=== PATIENT | male | born 1990 | race Caucasian/White ===

== ENCOUNTER 2024-02-24 22:55 | Observation (INO) ==
[2024-02-24 23:11] VITALS: BMI 53.6
--- NOTE | 2024-02-24 23:51 | DR.N/VMALE ---
HPI Time Seen Time Seen by Provider: 02/24/24 23:50 Primary Care Physician Primary Care Physician: Sarita Jarquin Complaints Chief Complaint Doctors Comments: Patient presents with RUQ abdl pain.Patient states that the pain began last night and he has had n,v,d.Patient was able to eat ( small amt) until 17:00 today.He states that after that time he has vomited everything or has had diarrhea. Patient states that the pain is a sharp pain, he has never hurt like this before and he feels weak. He states that 1 yr ago at [facility] he had a hida scan.The scan indicated that he had 0% functioning of his gallbladder. Patient has been taking monjaro for approx. 7 months. His current dose is 12.5mg ( he has been on this dose for 5 months). Patient denies: fever,hematemesis,hematochezia,dizziness. Chief Complaint:: Pt ambulatory into ER c/o nausea, vomiting, and diarrhea x1 day. Pt states he feels weak and has not had much intake today. Pt was seen 1 year ago and was told he had 0% gallbladder function but elected to not have it removed. Pt also states he takes Monjaro weekly. Self Treatment fo Chief Complaint: pt took anti-diarrheal medication and zofran at 4pm COVID-19 Coronavirus risk:travel/contact w/high risk person: No Has patient experienced Coronavirus symptoms: No Source History Provided: Patient Mode of Arrival Mode of Arrival: Ambulatory Timing Onset of Chief Complaint: 02/23/24 PMH PMH Past Medical History: No Past Surgical History: Yes Surgical History: Tonsillectomy Family History History of Family Medical Conditions: Yes Family Medical History: Diabetes Mellitus, Coronary Artery Disease and Hypertension Social History Does patient currently use any type of tobacco product: No Have you used tobacco products in the last 12 months: No Does any household member use tobacco: No Alcohol Use: None Do you use any recreational Drugs:: No Lives With: Spouse Lives Where: Home Travel Risk Coronavirus risk:travel/contact w/high risk person: No Has patient experienced Coronavirus symptoms: No Infectious screening In the last 2 months have you had wt loss of >10#?: NO Have you had fever, night sweats or hemotysis?: No Have you traveled outside the country in the last 6 months?: No Isolation: Standard ROS Review of Systems Constitutional: No Symptoms Reported Eyes: No Symptoms Reported ENTM: No Symptoms Reported Respiratoy: No Symptoms Reported Cardiovascular: No Symptoms Reported Gastrointestinal/Abdominal: Abdominal Pain (RUQ), Diarrhea, Nausea and Vomiting Genitourinary: No Symptoms Reported Neurological: Weakness Musculoskeletal: No Symptoms Reported Integumentary: No Symptoms Reported Hematologic/Lymphatic: No Symptoms Reported Endocrine: No Symptoms Reported Psychiatric: No Symptoms Reported All Other Systems: Reviewed and Negative PE Vital Signs Vitals: Vital Signs Temperature 98.1 F Pulse Rate [Brachial] 73 Pulse Rate 82 Respiratory Rate 18 Respiratory Rate 14 Respiratory Rate 16 Blood Pressure [Right Arm] 135/71 Blood Pressure 134/80 O2 Sat by Pulse Oximetry 100 O2 Sat by Pulse Oximetry 96 General Limitations: No Limitations General Appearance: Alert and In No Apparent Distress Head Head Exam: Normal Inspection Eyes Eye exam: Normal Appearance ENT ENT Exam: Normal Exam Neck Neck Exam: Normal Inspection Chest Chest Inspection: Normal Inspection Respiratory Respiratory Exam: Normal Lung Sounds Bilat Respiratory Exam: Bilateral: Clear to Auscultation Cardiovascular Cardiovascular Exam: Regular Rate and Normal Rhythm Abdominal Exam Abdominal Exam: Soft, Tenderness (RUQ) and Hypoactive Bowel Sounds Abdominal Tenderness: RUQ Rectal Rectal Exam: Deferred Exam: Male: Deferred Extremities Extremities Exam: Normal Inspection Back Back Exam: Normal Inspection Neurologic Neurological Exam: Alert and Oriented X3 Psychiatric Psychiatric Exam: Normal Affect and Normal Mood Skin Skin Exam: Warm, Dry, Intact and Normal Color MDM Differential Diagnosis Differential Diagnosis: Considerations may Include:: Appendicitis, Bowel Obstruction, Cholecystitis, Inflammatory BD, Pancreatitis and Urinary Tract Infection Differential Diagnosis Comment: Bowel iachemia,Bowel perforation COURSE Treatment Treatment: Patient was brought to an exam room and IV access was initiated. Patient was given 1 L normal saline bolus IV and Reglan 10 mg IV. Patient was offered medication for pain but would not like any at this time. Patient's labs and tests were reviewed:The abdpelvis Ct w/ contrast did not reveal an acute process,wbc 10.6,CMP stable,u/a neg,LFts stable,CRP11.5,lactic acid 0.7.Patient received dialudid 1mg iv for pain 02:[address] Solano.Dr Solano will admit Patient to his service for further evaluation.Patient has been stable in the [facility] Labs Reviewed Laboratory Results Reviewed?: Yes 02/24/24 23:56 02/24/24 23:56 Laboratory: WBC 10.6 X10^3/uL (3.6-10.0) H 02/24/24 23:56 RBC 5.11 X10^6/uL (4.7-6.0) 02/24/24 23:56 Hgb 13.9 g/dL (13.5-18.0) 02/24/24 23:56 Hct 42.5 % (42.0-54.0) 02/24/24 23:56 MCV 83.2 fL (80.0-100.0) 02/24/24 23:56 MCH 27.3 pg (27.0-34.0) 02/24/24 23:56 MCHC 32.8 g/dL (33.0-35.0) L 02/24/24 23:56 RDW 14.5 % (11.6-16.5) 02/24/24 23:56 Plt Count 237 X10^3/uL (150.0-450.0) 02/24/24 23:56 MPV 9.8 fL (7.4-11.0) 02/24/24 23:56 Neut % (Auto) 69.2 % (42.0-75.0) 02/24/24 23:56 Lymph % (Auto) 22.2 % (21.0-51.0) 02/24/24 23:56 [place] % (Auto) 6.1 % (0.0-13.0) 02/24/24 23:56 Eos % (Auto) 1.8 % (0.9-2.9) 02/24/24 23:56 Baso % (Auto) 0.7 % (0.2-1.0) 02/24/24 23:56 Neut # (Auto) 7.3 x10^3/uL (2.2-4.8) H 02/24/24 23:56 Lymph # (Auto) 2.3 X10^3/uL (1.3-2.9) 02/24/24 23:56 [place] # (Auto) 0.6 x10^3/uL (0.3-0.8) 02/24/24 23:56 Eos # (Auto) 0.2 x10^3/uL (0.0-0.2) 02/24/24 23:56 Baso # (Auto) 0.1 X10^3/uL (0.0-0.1) 02/24/24 23:56 Absolute Nucleated RBC 0.1 /100WBC 02/24/24 23:56 Sodium 141 mmol/L (136-145) 02/24/24 23:56 Corrected Sodium TNP 02/24/24 23:56 Potassium 3.4 mmol/L (3.5-5.1) L 02/24/24 23:56 Chloride 105 mmol/L (98-107) 02/24/24 23:56 Carbon Dioxide 27.1 mmol/L (21-32) 02/24/24 23:56 BUN 12 mg/dL (7-18) 02/24/24 23:56 Creatinine 0.83 mg/dL (0.70-1.30) 02/24/24 23:56 Est GFR (MDRD) Af Amer > 60 (>60) 02/24/24 23:56 Est GFR (MDRD) Non-Af > 60 (>60) 02/24/24 23:56 Glucose 87 mg/dL (65-99) 02/24/24 23:56 Lactic Acid 0.7 mmol/L (0.4-2.0) 02/25/24 00:30 Calcium 8.1 mg/dL (8.5-10.1) L 02/24/24 23:56 Corrected Calcium 8.7 mg/dL (8.5-10.1) 02/24/24 23:56 Total Bilirubin 0.50 mg/dL (0.2-1.0) 02/24/24 23:56 AST 13 Units/L (15-37) L 02/24/24 23:56 ALT 21 Units/L (12-78) 02/24/24 23:56 Alkaline Phosphatase 73 Units/L (46-116) 02/24/24 23:56 C-Reactive Protein 11.50 mg/L (0-3.0) H 02/25/24 23:56 Total Protein 7.0 g/dL (6.4-8.2) 02/24/24 23:56 Albumin 3.2 g/dL (3.4-5.0) L 02/24/24 23:56 Globulin 3.8 g/dL (2.5-4.5) 02/24/24 23:56 Albumin/Globulin Ratio 0.8 Ratio (1.1-2.1) L 02/24/24 23:56 Amylase 40 Units/L (25-115) 02/24/24 23:56 Lipase 26 Units/L (16-77) 02/24/24 23:56 Specimen Type Clean catch urine 02/25/24 01:00 Urine Color Yellow (YELLOW) 02/25/24 01:00 Urine Appearance Clear (CLEAR) 02/25/24 01:00 Urine pH 5.0 (5.0 - 8.0) 02/25/24 01:00 Ur Specific [place] 1.020 (1.000-1.030) 02/25/24 01:00 Urine Protein 1+ (NEGATIVE) 02/25/24 01:00 Urine Glucose (UA) Negative (NEGATIVE) 02/25/24 01:00 Urine Ketones Negative (NEGATIVE) 02/25/24 01:00 Urine Blood Negative (NEGATIVE) 02/25/24 01:00 Urine Nitrite Negative (NEGATIVE) 02/25/24 01:00 Urine Bilirubin Negative (NEGATIVE) 02/25/24 01:00 Urine Urobilinogen Normal (NORMAL) 02/25/24 01:00 Ur Leukocyte Esterase 1+ (NEGATIVE) 02/25/24 01:00 Urine RBC None seen /HPF (0-3) 02/25/24 01:00 Urine WBC 0-2 /HPF (0-5) 02/25/24 01:00 Ur Squamous Epith Cells Rare /HPF (NEGATIVE) 02/25/24 01:00 Urine Bacteria Negative /HPF (NEGATIVE) 02/25/24 01:00 Urine Mucus Few /HPF (NEGATIVE) 02/25/24 01:00 Ur Culture Indicated? No/not indicated 02/25/24 01:00 Opioid Opioid Risk Tool Age ([place] box if 16-45): Yes History of Preadolescent Sexual Abuse: No Total: 1 Total Score Risk Category: Low Risk Copyright: Madhu MORIN predicting aberrant behaviors Discharge Plan Diagnosis Discharge Problem: Intractable abdominal pain, Disease of gallbladder Discharge Plan Patient Disposition: ADMITTED INPATIENT Condition: Stable Prescriptions: No Action ondansetron 8 mg tablet,disintegrating 8 mg PO Q6H PRN (Reason: Nausea And Vomiting) Mounjaro 12.5 mg/0.5 mL pen injector SUBCUT Patient Comments: [NO ORIGINAL SIG] Health Concerns: Post Hospitalization: new medications and changes needed to prevent readmission or further decline. Pt educated and given instructions on all concerns. Plan of Treatment: Continue with present treatment and follow up plan. Pt is to keep follow up appointment as instructed and take medications as ordered. Orders to Discharge Patient Discharge Orders: Transfer (Routine); Ordered 02/25/24 Ordered By: Jenna Kinsey Follow ups/Referrals Follow ups/Referrals: MARY ELLEN JARQUIN [Primary Care Provider] - 3 days Instructions Stand Alone Forms: Post Hospital Follow Up Care
[2024-02-25] MEDS: NS 1,000 ML IV 1,000 ML IV ONE (00:09)
[2024-02-25] MEDS: REGLAN INJ 10 MG VIAL IVP ONE (00:12)
[2024-02-25 00:31] LABS: HEMOGLOBIN 13.9 g/dL (13.5-18.0)
[2024-02-25 00:33] LABS: BASOPHILS # (AUTO) 0.1 X10^3/uL (0.0-0.1); BASOPHILS % (AUTO) 0.7 % (0.2-1.0); EOSINOPHILS # (AUTO) 0.2 x10^3/uL (0.0-0.2); EOSINOPHILS % (AUTO) 1.8 % (0.9-2.9); HEMATOCRIT 42.5 % (42.0-54.0); LYMPHOCYTES # (AUTO) 2.3 X10^3/uL (1.3-2.9); LYMPHOCYTES % (AUTO) 22.2 % (21.0-51.0); MEAN CORPUSCULAR HEMOGLOBIN 27.3 pg (27.0-34.0); MEAN CORPUSCULAR HGB CONC 32.8 g/dL (33.0-35.0); MEAN CORPUSCULAR VOLUME 83.2 fL (80.0-100.0); MEAN PLATELET VOLUME 9.8 fL (7.4-11.0); MONOCYTES # (AUTO) 0.6 x10^3/uL (0.3-0.8); MONOCYTES % (AUTO) 6.1 % (0.0-13.0); NEUTROPHILS # (AUTO) 7.3 x10^3/uL (2.2-4.8); NEUTROPHILS % (AUTO) 69.2 % (42.0-75.0); PLATELET COUNT 237 X10^3/uL (150.0-450.0); RED BLOOD COUNT 5.11 X10^6/uL (4.7-6.0); RED CELL DISTRIBUTION WIDTH 14.5 % (11.6-16.5); WHITE BLOOD COUNT 10.6 X10^3/uL (3.6-10.0)
[2024-02-25 00:38] LABS: ALANINE AMINOTRANSFERASE 21 Units/L (12-78); ALBUMIN 3.2 g/dL (3.4-5.0); ALKALINE PHOSPHATASE 73 Units/L (46-116); AMYLASE 40 Units/L (25-115); ASPARTATE AMINO TRANSFERASE 13 Units/L (15-37); BLOOD UREA NITROGEN 12 mg/dL (7-18); CALCIUM 8.1 mg/dL (8.5-10.1); CARBON DIOXIDE 27.1 mmol/L (21-32); CHLORIDE 105 mmol/L (98-107); COR CA(FOR HYPOALB) 8.7 mg/dL (8.5-10.1); CREATININE 0.83 mg/dL (0.70-1.30); GLUCOSE 87 mg/dL (65-99); LIPASE 26 Units/L (16-77); POTASSIUM 3.4 mmol/L (3.5-5.1); SODIUM 141 mmol/L (136-145); eGFR NON BLACK RACES > 60 (>60)
[2024-02-25 01:19] LABS: BILIRUBIN,URINE NEGATIVE (NEGATIVE); BLOOD/HEMOGLOBIN,URINE NEGATIVE (NEGATIVE); GLUCOSE, URINE NEGATIVE (NEGATIVE); KETONES,URINE NEGATIVE (NEGATIVE); LEUKOCYTE ESTERASE ,URINE 1+ (NEGATIVE); NITRITES,URINE NEGATIVE (NEGATIVE); PROTEIN,URINE 1+ (NEGATIVE); UROBILINOGEN,URINE NORMAL (NORMAL)
[2024-02-25 01:24] LABS: APPEARANCE,URINE CLEAR (CLEAR); COLOR,URINE YELLOW (YELLOW); RBC,URINE NONE SEEN /HPF (0-3)
--- NOTE | 2024-02-25 01:24 | CT ---
EXAM:CT ABDOMEN AND PELVIS WITH CONTRASTHISTORY:RUQ abdl pain, N/V/D; Pt was seen 1 year ago and was told he had 0% gallbladder function but elected to not have it removed. Pt also states he takes Monjaro weekly.COMPARISON:NoneTECHNIQUE:Axial images were acquired of the abdomen and pelvis with IV contrast. Sagittal and coronal reformatted images were provided. All images were reviewed in a variety of windows and levels.RADIATION REDUCTION TECHNIQUE: Automated exposure control, adjustment of the mA and/or kV according to patient size, or iterative reconstruction techniques were used.FINDINGS:LOWER THORAX: The visualized lower lung zones are clear. The heart size is within normal limits. There is no evidence of a pericardial effusion.LIVER: No intrahepatic focal lesions are seen. No evidence of intrahepatic or extrahepatic duct dilation.GALLBLADDER: The gallbladder is unremarkable.SPLEEN: The spleen enhances homogenously and is unremarkable.PANCREAS: The pancreas enhances homogenously and is unremarkable.ADRENAL GLANDS: The adrenal glands enhance homogenously and are unremarkable.: The kidneys enhance homogenously. Their collecting system is of normal caliber.URINARY BLADDER: The urinary bladder is unremarkable. There are no soft tissue masses seen in the urinary bladder.VESSELS: The abdominal aorta is normal in size without evidence of aneurysm or dissection. The celiac artery, superior mesenteric artery, [place] renal arteries, and inferior mesenteric artery are patent.GI: The stomach and small bowel is unremarkable. There are no inflammatory changes seen in the right lower quadrant to suggest secondary signs of acute appendicitis. Normal appendix right lower quadrant.LYMPHNODES AND MESENTERY: There is no evidence of retroperitoneal lymphadenopathy. Small fat containing umbilical hernia. There is a 3.8 x 1.9 cm left inguinal lymph node.BONES: The visualized bones demonstrate degenerative changes. There are no concerning lytic or blastic lesions identified.IMPRESSION:Small fat containing umbilical hernia.Enlarged left inguinal lymph node.No acute abdominal or pelvic pathologyTHIS IS AN ELECTRONICALLY VERIFIED FINAL REPORT02/25/2024 1:21 AM - Electronically signed by Scar Steele MD
[2024-02-25 01:25] LABS: BACTERIA,URINE NEGATIVE /HPF (NEGATIVE); SQUAMOUS EPITHELIAL CELL,UR RARE /HPF (NEGATIVE)
[2024-02-25] MEDS: DILAUDID INJ IVP ONE (02:18)
[2024-02-25] MEDS ORDERED: ZOFRAN INJ 4 MG VIAL IVP PRN (02:54)
[2024-02-25] MEDS: LR 1,000 ML IV 1,000 ML IV SCH ×2 (03:16→09:38)
[2024-02-25 05:02] LABS: BASOPHILS # (AUTO) 0.1 X10^3/uL (0.0-0.1); BASOPHILS % (AUTO) 0.6 % (0.2-1.0); EOSINOPHILS # (AUTO) 0.2 x10^3/uL (0.0-0.2); EOSINOPHILS % (AUTO) 2.4 % (0.9-2.9); HEMATOCRIT 42.1 % (42.0-54.0); HEMOGLOBIN 13.7 g/dL (13.5-18.0); LYMPHOCYTES % (AUTO) 21.5 % (21.0-51.0); MEAN CORPUSCULAR HEMOGLOBIN 27.3 pg (27.0-34.0); MEAN CORPUSCULAR HGB CONC 32.6 g/dL (33.0-35.0); MEAN CORPUSCULAR VOLUME 83.8 fL (80.0-100.0); MEAN PLATELET VOLUME 9.9 fL (7.4-11.0); MONOCYTES # (AUTO) 0.5 x10^3/uL (0.3-0.8); MONOCYTES % (AUTO) 5.5 % (0.0-13.0); NEUTROPHILS # (AUTO) 6.5 x10^3/uL (2.2-4.8); PLATELET COUNT 189 X10^3/uL (150.0-450.0); RED BLOOD COUNT 5.02 X10^6/uL (4.7-6.0); RED CELL DISTRIBUTION WIDTH 14.7 % (11.6-16.5); WHITE BLOOD COUNT 9.2 X10^3/uL (3.6-10.0)
[2024-02-25 05:07] LABS: ALANINE AMINOTRANSFERASE 18 Units/L (12-78); ALBUMIN 2.9 g/dL (3.4-5.0); ALKALINE PHOSPHATASE 79 Units/L (46-116); ASPARTATE AMINO TRANSFERASE 13 Units/L (15-37); BLOOD UREA NITROGEN 11 mg/dL (7-18); CALCIUM 7.9 mg/dL (8.5-10.1); CARBON DIOXIDE 26.7 mmol/L (21-32); CHLORIDE 105 mmol/L (98-107); COR CA(FOR HYPOALB) 8.8 mg/dL (8.5-10.1); GLUCOSE 78 mg/dL (65-99); POTASSIUM 3.5 mmol/L (3.5-5.1); SODIUM 140 mmol/L (136-145); TOTAL PROTEIN 6.7 g/dL (6.4-8.2); eGFR NON BLACK RACES > 60 (>60)
[2024-02-25] MEDS ORDERED: CONSULT PHARMACY - POTASSIUM & MAGNESIUM XX SCH (07:00)
[2024-02-25] MEDS: DILAUDID INJ ONE (07:11)
[2024-02-25] MEDS: OMNIPAQUE 350 mg/mL 100 mL BTL 100 ML ONE (07:12)
[2024-02-25] MEDS: K-DUR TAB 20 MEQ PO SCH (08:29)
[2024-02-25] MEDS: PROTONIX INJ 40 MG VIAL IVP SCH (08:29)
[2024-02-25] MEDS: FLAGYL IV PREMIX 500 MG BAG 500 MG/100 ML BAG IV SCH (08:29)
--- NOTE | 2024-02-25 17:27 | DR.PROGNOT ---
HOSPITAL PROGRESS NOTE Progress Note for Day of: Progress Note Date: 02/25/24 Chief Complaint Chief Complaint: c/o Rt side and upper abdominal pain . having frequent loose BM , no bleeding . one C Dif was negative .. CBC , CMP normal .CRP up to 11 . afebrile .. Past Medical Family Social History Allergies: Allergies bee venom protein (honey bee) Allergy (Severe, Verified 02/24/24 23:10) ANAPHALEXIS REACTION cefaclor [From Ceclor] Allergy (Severe, Verified 02/24/24 23:10) ANAPHALEXIS REACTION Vital Signs Vital Signs: Vital Signs Temperature 97.2 F Temperature 98.4 F Pulse Rate [Brachial] 63 Pulse Rate [Brachial] 65 Respiratory Rate 17 Respiratory Rate 18 Blood Pressure [Right Arm] 112/62 Blood Pressure [Right Arm] 127/66 O2 Sat by Pulse Oximetry 97 O2 Sat by Pulse Oximetry 96 Physical Exam Oriented: Normal Eyes: Normal Ear: Normal Nose: Normal Throat: Normal Respiratory: Normal Cardiovascular: Normal GI:Palpation: Normal GI: Tenderness: Other (RT side tenderness , BS hypoactive .) Speech Pattern: Clear and Appropriate Laboratory and Diagnostics 02/25/24 04:32 02/25/24 04:32 Labs: 02/25/24 09:16 Stool - Final Laboratory WBC 9.2 X10^3/uL (3.6-10.0) 02/25/24 04:32 RBC 5.02 X10^6/uL (4.7-6.0) 02/25/24 04:32 Hgb 13.7 g/dL (13.5-18.0) 02/25/24 04:32 Hct 42.1 % (42.0-54.0) 02/25/24 04:32 MCV 83.8 fL (80.0-100.0) 02/25/24 04:32 MCH 27.3 pg (27.0-34.0) 02/25/24 04:32 MCHC 32.6 g/dL (33.0-35.0) L 02/25/24 04:32 RDW 14.7 % (11.6-16.5) 02/25/24 04:32 Plt Count 189 X10^3/uL (150.0-450.0) 02/25/24 04:32 MPV 9.9 fL (7.4-11.0) 02/25/24 04:32 Neut % (Auto) 70.0 % (42.0-75.0) 02/25/24 04:32 Lymph % (Auto) 21.5 % (21.0-51.0) 02/25/24 04:32 [place] % (Auto) 5.5 % (0.0-13.0) 02/25/24 04:32 Eos % (Auto) 2.4 % (0.9-2.9) 02/25/24 04:32 Baso % (Auto) 0.6 % (0.2-1.0) 02/25/24 04:32 Neut # (Auto) 6.5 x10^3/uL (2.2-4.8) H 02/25/24 04:32 Lymph # (Auto) 2.0 X10^3/uL (1.3-2.9) 02/25/24 04:32 [place] # (Auto) 0.5 x10^3/uL (0.3-0.8) 02/25/24 04:32 Eos # (Auto) 0.2 x10^3/uL (0.0-0.2) 02/25/24 04:32 Baso # (Auto) 0.1 X10^3/uL (0.0-0.1) 02/25/24 04:32 Absolute Nucleated RBC 0.1 /100WBC 02/25/24 04:32 Sodium 140 mmol/L (136-145) 02/25/24 04:32 Corrected Sodium TNP 02/25/24 04:32 Potassium 3.5 mmol/L (3.5-5.1) 02/25/24 04:32 Chloride 105 mmol/L (98-107) 02/25/24 04:32 Carbon Dioxide 26.7 mmol/L (21-32) 02/25/24 04:32 BUN 11 mg/dL (7-18) 02/25/24 04:32 Creatinine 0.70 mg/dL (0.70-1.30) 02/25/24 04:32 Est GFR (MDRD) Af Amer > 60 (>60) 02/25/24 04:32 Est GFR (MDRD) Non-Af > 60 (>60) 02/25/24 04:32 Glucose 78 mg/dL (65-99) 02/25/24 04:32 POC Glucose (mg/dL) 79 mg/dL (65-99) 02/25/24 05:19 Lactic Acid 0.7 mmol/L (0.4-2.0) 02/25/24 00:30 Calcium 7.9 mg/dL (8.5-10.1) L 02/25/24 04:32 Corrected Calcium 8.8 mg/dL (8.5-10.1) 02/25/24 04:32 Magnesium 1.6 mg/dL (2.0-2.9) L 02/24/24 23:55 Total Bilirubin 0.50 mg/dL (0.2-1.0) 02/25/24 04:32 AST 13 Units/L (15-37) L 02/25/24 04:32 ALT 18 Units/L (12-78) 02/25/24 04:32 Alkaline Phosphatase 79 Units/L (46-116) 02/25/24 04:32 C-Reactive Protein 11.50 mg/L (0-3.0) H 02/25/24 23:56 Total Protein 6.7 g/dL (6.4-8.2) 02/25/24 04:32 Albumin 2.9 g/dL (3.4-5.0) L 02/25/24 04:32 Globulin 3.8 g/dL (2.5-4.5) 02/25/24 04:32 Albumin/Globulin Ratio 0.8 Ratio (1.1-2.1) L 02/25/24 04:32 Amylase 40 Units/L (25-115) 02/24/24 23:56 Lipase 26 Units/L (16-77) 02/24/24 23:56 Specimen Type Clean catch urine 02/25/24 01:00 Urine Color Yellow (YELLOW) 02/25/24 01:00 Urine Appearance Clear (CLEAR) 02/25/24 01:00 Urine pH 5.0 (5.0 - 8.0) 02/25/24 01:00 Ur Specific [place] 1.020 (1.000-1.030) 02/25/24 01:00 Urine Protein 1+ (NEGATIVE) 02/25/24 01:00 Urine Glucose (UA) Negative (NEGATIVE) 02/25/24 01:00 Urine Ketones Negative (NEGATIVE) 02/25/24 01:00 Urine Blood Negative (NEGATIVE) 02/25/24 01:00 Urine Nitrite Negative (NEGATIVE) 02/25/24 01:00 Urine Bilirubin Negative (NEGATIVE) 02/25/24 01:00 Urine Urobilinogen Normal (NORMAL) 02/25/24 01:00 Ur Leukocyte Esterase 1+ (NEGATIVE) 02/25/24 01:00 Urine RBC None seen /HPF (0-3) 02/25/24 01:00 Urine WBC 0-2 /HPF (0-5) 02/25/24 01:00 Ur Squamous Epith Cells Rare /HPF (NEGATIVE) 02/25/24 01:00 Urine Bacteria Negative /HPF (NEGATIVE) 02/25/24 01:00 Urine Mucus Few /HPF (NEGATIVE) 02/25/24 01:00 Ur Culture Indicated? No/not indicated 02/25/24 01:00 Stl C. diff Tox B Gene Negative (NEGATIVE) 02/25/24 09:16 Stl C. diff [id number] Presumptive negative (NEGATIVE) 02/25/24 09:16 Assessment and Plan 1: abdominal pain , cholecystitis . lap kimberley if still symptomatic .. 2: severe diarrhea , r/O colitis . to obtain stool for C Diff again . on IV Flagyl . Problem Patient Problems: Patient Problems (Updated 02/25/24 @ 02:06 by Jenna Kinsey) Intractable abdominal pain (Acute) R10.9 Disease of gallbladder (Acute) K82.9
[2024-02-26] MEDS ORDERED: TYLENOL 325 MG TAB PO PRN (03:55)
[2024-02-26] MEDS: DILAUDID INJ IVP PRN (04:09)
[2024-02-26 05:04] LABS: BASOPHILS % (AUTO) 0.4 % (0.2-1.0); EOSINOPHILS # (AUTO) 0.2 x10^3/uL (0.0-0.2); EOSINOPHILS % (AUTO) 2.1 % (0.9-2.9); HEMATOCRIT 40.8 % (42.0-54.0); HEMOGLOBIN 13.4 g/dL (13.5-18.0); LYMPHOCYTES # (AUTO) 1.4 X10^3/uL (1.3-2.9); LYMPHOCYTES % (AUTO) 18.4 % (21.0-51.0); MEAN CORPUSCULAR HEMOGLOBIN 27.3 pg (27.0-34.0); MEAN CORPUSCULAR HGB CONC 32.9 g/dL (33.0-35.0); MEAN CORPUSCULAR VOLUME 83.1 fL (80.0-100.0); MEAN PLATELET VOLUME 9.6 fL (7.4-11.0); MONOCYTES # (AUTO) 0.5 x10^3/uL (0.3-0.8); MONOCYTES % (AUTO) 5.8 % (0.0-13.0); NEUTROPHILS # (AUTO) 5.8 x10^3/uL (2.2-4.8); NEUTROPHILS % (AUTO) 73.3 % (42.0-75.0); PLATELET COUNT 203 X10^3/uL (150.0-450.0); RED BLOOD COUNT 4.91 X10^6/uL (4.7-6.0); RED CELL DISTRIBUTION WIDTH 14.5 % (11.6-16.5); WHITE BLOOD COUNT 7.9 X10^3/uL (3.6-10.0)
[2024-02-26 05:22] LABS: ALANINE AMINOTRANSFERASE 16 Units/L (12-78); ALBUMIN 2.7 g/dL (3.4-5.0); ALKALINE PHOSPHATASE 65 Units/L (46-116); ASPARTATE AMINO TRANSFERASE 9 Units/L (15-37); BLOOD UREA NITROGEN 5 mg/dL (7-18); CALCIUM 7.9 mg/dL (8.5-10.1); CARBON DIOXIDE 26.7 mmol/L (21-32); CHLORIDE 107 mmol/L (98-107); COR CA(FOR HYPOALB) 8.9 mg/dL (8.5-10.1); CREATININE 0.62 mg/dL (0.70-1.30); GLUCOSE 87 mg/dL (65-99); MAGNESIUM 1.5 mg/dL (2.0-2.9); POTASSIUM 3.5 mmol/L (3.5-5.1); SODIUM 142 mmol/L (136-145); TOTAL PROTEIN 6.2 g/dL (6.4-8.2); eGFR NON BLACK RACES > 60 (>60)
[2024-02-26] MEDS: CONSULT PHARMACY - POTASSIUM & MAGNESIUM XX SCH (08:04)
[2024-02-26] MEDS: K-DUR TAB 20 MEQ PO SCH (08:09)
[2024-02-26] MEDS: LR 1,000 ML IV 1,000 ML with MAGNESIUM SULFATE 50% INJ VIAL 1 G IV SCH (08:15)
[2024-02-26] MEDS ORDERED: MAG-OX TAB PO SCH (09:00)
[2024-02-26] MEDS: LR 1,000 ML IV 1,000 ML IV ONE (09:21)
[2024-02-26] MEDS: ANCEF VIAL 1 GRAM ONE (09:21)
[2024-02-26] MEDS: NS 100 ML IV 100 ML ONE (09:21)
[2024-02-26] MEDS ORDERED: REGLAN INJ 10 MG VIAL IVP PRN (09:24)
[2024-02-26] MEDS ORDERED: BENADRYL INJ 50 MG VIAL IVP PRN (09:24)
[2024-02-26] MEDS ORDERED: BARHEMSYS INJ IVP PRN (09:24)
[2024-02-26] MEDS ORDERED: DILAUDID INJ IVP PRN (09:24)
[2024-02-26] MEDS ORDERED: ZOFRAN INJ 4 MG VIAL IVP PRN (09:24)
[2024-02-26] MEDS: BRIDION ONE (09:28)
[2024-02-26] MEDS: VERSED ONE (09:28)
[2024-02-26] MEDS: FENTANYL VIAL INJ 250 mcg ONE (09:28)
[2024-02-26] MEDS: DIPRIVAN VIAL 20 ML ONE ×2 (09:28→10:33)
[2024-02-26] MEDS: PEPCID 20 MG VIAL ONE (09:29)
[2024-02-26] MEDS: QUELICIN (OR ANECTINE) ONE (09:29)
[2024-02-26] MEDS: ZEMURON 100 MG VIAL ONE (09:29)
[2024-02-26] MEDS ORDERED: SUPRANE ONE (09:34)
[2024-02-26] MEDS: BACTROBAN TOPICAL OINT ONE (09:49)
[2024-02-26] MEDS: TORADOL 30 MG VIAL ONE (10:01)
[2024-02-26] MEDS: ZOFRAN INJ 4 MG VIAL ONE (11:27)
[2024-02-26] MEDS: PHENERGAN TAB 25 MG PO PRN (12:47)
[2024-02-26] MEDS ORDERED: MILK OF MAGNESIA PO PRN (14:00)
[2024-02-26] MEDS: PERCOCET TAB 5/325 MG PO PRN (14:38)
[2024-02-26] MEDS: ZOFRAN INJ 4 MG VIAL IVP PRN (18:43)
[2024-02-26] MEDS: COLACE CAP 100 MG PO SCH (20:28)
[2024-02-27 04:37] VITALS: O2SAT 96
[2024-02-27 05:41] LABS: BASOPHILS % (AUTO) 0.9 % (0.2-1.0); EOSINOPHILS # (AUTO) 0.1 x10^3/uL (0.0-0.2); EOSINOPHILS % (AUTO) 2.5 % (0.9-2.9); HEMATOCRIT 44.5 % (42.0-54.0); HEMOGLOBIN 14.5 g/dL (13.5-18.0); LYMPHOCYTES # (AUTO) 1.3 X10^3/uL (1.3-2.9); LYMPHOCYTES % (AUTO) 26.5 % (21.0-51.0); MEAN CORPUSCULAR HEMOGLOBIN 27.3 pg (27.0-34.0); MEAN CORPUSCULAR HGB CONC 32.5 g/dL (33.0-35.0); MEAN PLATELET VOLUME 9.5 fL (7.4-11.0); MONOCYTES # (AUTO) 0.3 x10^3/uL (0.3-0.8); MONOCYTES % (AUTO) 5.9 % (0.0-13.0); NEUTROPHILS # (AUTO) 3.2 x10^3/uL (2.2-4.8); NEUTROPHILS % (AUTO) 64.2 % (42.0-75.0); PLATELET COUNT 201 X10^3/uL (150.0-450.0); RED CELL DISTRIBUTION WIDTH 14.6 % (11.6-16.5)
[2024-02-27 05:51] LABS: ALANINE AMINOTRANSFERASE 336 Units/L (12-78); ALBUMIN 2.8 g/dL (3.4-5.0); ALKALINE PHOSPHATASE 132 Units/L (46-116); ASPARTATE AMINO TRANSFERASE 389 Units/L (15-37); BLOOD UREA NITROGEN 3 mg/dL (7-18); CALCIUM 8.2 mg/dL (8.5-10.1); CARBON DIOXIDE 29.6 mmol/L (21-32); CHLORIDE 106 mmol/L (98-107); COR CA(FOR HYPOALB) 9.2 mg/dL (8.5-10.1); CREATININE 0.72 mg/dL (0.70-1.30); GLUCOSE 81 mg/dL (65-99); POTASSIUM 3.6 mmol/L (3.5-5.1); SODIUM 142 mmol/L (136-145); TOTAL PROTEIN 6.6 g/dL (6.4-8.2); eGFR NON BLACK RACES > 60 (>60)
[2024-02-27 07:44] VITALS: BP 135/89; PULSE 78; TEMP 97.8
[2024-02-27 08:00] VITALS: RESP 20
== END 2024-02-27 11:40 | disposition home or self-care (01) ==
LOC: MED/SURG 22:57 → ER 22:57 → MED/SURG 02-25 02:57
PROVIDERS: ADMIT Surgery; ATTEND Surgery
DX: R10.11 Right upper quadrant pain; Z68.43 Body mass index [BMI] 50.0-59.9, adult; E83.42 Hypomagnesemia; E87.6 Hypokalemia; E66.01 Morbid (severe) obesity due to excess calories; R59.0 Localized enlarged lymph nodes; R10.84 Generalized abdominal pain; K52.89 Other specified noninfective gastroenteritis and colitis; R11.2 Nausea with vomiting, unspecified; R19.7 Diarrhea, unspecified; K81.0 Acute cholecystitis; R79.82 Elevated C-reactive protein (CRP); K82.8 Other specified diseases of gallbladder; K42.9 Umbilical hernia without obstruction or gangrene